=== PATIENT | female | born 1975 | race Caucasian/White ===

== ENCOUNTER 2018-04-06 05:30 | Day surgery (SDC) | payer BC ==
[2018-04-05 14:17] LABS: ANION GAP 12.3 mmol/L (8-16); CALCIUM 8.2 mg/dL (8.5-10.1); CARBON DIOXIDE 28.4 mmol/L (21.0-32.0); CREATININE - SERUM 0.9 mg/dL (0.6-1.3); POTASSIUM - SERUM 3.7 mmol/L (3.5-5.1)
[2018-04-05 14:45] LABS: HEMATOCRIT 42.4 % (36.0-48.0); HEMOGLOBIN 14.5 g/dL (12-16); LYMPHOCYTES 28.4 % (15-50); MCH 31.4 pg (26.0-34.0); MCHC 34.2 g/dL (31.0-37.0); MCV 91.8 fL (80.0-100.0); MEAN PLATELET VOLUME 9.6 fL (7.4-10.4); NEUTROPHILS 67.9 % (40-80); PLATELET COUNT 213 10x3/uL (130-400); RBC 4.62 10x6/uL (4.00-5.40); RDW 12.4 % (11.5-14.5)
[~2018-04-06] VITALS: Ht 182.9 cm; Wt 106.6 kg
[~2018-04-06 05:30] MED LIST: ATARAX 25 MG TA25 MG PO; PEPCID AC20 MG PO; ZYRTEC10 MG PO
[2018-04-06 06:20] VITALS: BP 118/75; Ht 182.9 cm; Wt 106.6 kg
[2018-04-06 06:27] LABS: HCG URINE NEGATIVE (NEGATIVE)
[2018-04-06] MEDS ORDERED: NORCO 10-325 TA1 TAB PO (08:48)
--- NOTE | 2018-04-10 11:56 | OP ---
PATIENT NAME: MOHINI HACKETT MEDICAL RECORD: [id number] :77 LOCATION:[facility] ADMISSION DATE: SURGEON: JAYESH MALDONADO MD DATE OF OPERATION: 04/06/2018 PREOPERATIVE DIAGNOSES: 1. Gallstones. 2. Tobacco dependence syndrome. POSTOPERATIVE DIAGNOSES: 1. Gallstones. 2. Tobacco dependence syndrome. PROCEDURE: Laparoscopic cholecystectomy. SURGEON: Jayesh Maldonado MD LOG CHAIN WORKER: Megan Esteban APRN REPORT OF PROCEDURE: The patient's abdomen was prepped and draped in sterile fashion. A cutdown was made on the superior aspect of the umbilicus, 0 Vicryls were placed in the fascia bilaterally and the fascia was incised with 15-blade. I then bluntly entered the peritoneal cavity and placed a 12-mm Jose port. Under direct visualization, a 5-mm trocar was placed in the epigastrium and 2 more 5-mm trocars were placed in the right subcostal region. The gallbladder was elevated. There were some adhesions present on the small bowel to the gallbladder and this was teased down carefully with sharp dissection. The gallbladder had a large stone present in the infundibulum. We then dissected out the cystic artery and cystic duct and these were clipped proximally and distally and ligated in standard fashion. The gallbladder was taken off the liver bed using electrocautery and placed into the right upper quadrant. Any bleeding from the liver bed was then treated with electrocautery. At this point, the ports and insufflation were then removed and the gallbladder was taken out through the umbilicus. The umbilical fascia was closed with interrupted 0 Vicryls times 3. The wounds were then irrigated out with normal saline and infused with 10 mL of 0.25% Marcaine with epinephrine. The skin incisions were all closed with subcutaneous 5-0 Monocryl and dressed appropriately. COMPLICATIONS: None. CONDITION: Stable. ANESTHESIA: General endotracheal and local. BLOOD LOSS: Minimal. TRANSINT:[id number] Voice Confirmation ID: [id number] DOCUMENT ID: [id number] OPERATIVE REPORT [id number] MOHINI HACKETT JAYESH MALDONADO MD at 1156 CC: LLUVIA LUTHER [id number] DICTATION DATE: 04/06/1852 [employer] INSTALLER: 04/06/18 0931 [facility] 04/06/18 [facility] [address] [place] [address]
== END 2018-04-06 12:04 | disposition home or self-care (01) ==
LOC: D.OPS 05:30 → D.PAN 08:00 → D.OPS 12:04
PROVIDERS: Surgery
DX: K80.20 Calculus of gallbladder without cholecystitis without obstruction (principal); F17.200 Nicotine dependence, unspecified, uncomplicated; Z01.812 Encounter for preprocedural laboratory examination

== ENCOUNTER → 2018-06-20 08:27 | Outpatient (CLI) | payer BC ==
[2018-04-06 06:20] VITALS: BMI 31.9
[~2018-06-20 08:27] MED LIST changes: +NORCO 10-325 TA1 TAB PO
== END | disposition home or self-care (01) ==
LOC: D.NM 08:27
PROVIDERS: ATTEND Internal Medicine Gastroenterology
DX: R11.2 Nausea with vomiting, unspecified (principal); R10.9 Unspecified abdominal pain; R68.81 Early satiety

== ENCOUNTER 2019-07-15 07:24 | Day surgery (SDC) | payer BC, OTHER ==
[2019-07-11 12:14] LABS: UDS - AMPHET NEGATIVE QUAL (NEGATIVE); UDS - BARB NEGATIVE QUAL (NEGATIVE); UDS - BENZO NEGATIVE QUAL (NEGATIVE); UDS - COCAINE NEGATIVE QUAL (NEGATIVE); UDS - OPIATE NEGATIVE QUAL (NEGATIVE); UDS - PCP NEGATIVE QUAL (NEGATIVE); UDS - THC NEGATIVE QUAL (NEGATIVE)
[2019-07-11 12:28] LABS: CALC OSMOLALITY 278 mosm/kg (275-300); CALCIUM 8.7 mg/dL (8.5-10.1); CARBON DIOXIDE 28.1 mmol/L (21.0-32.0); CHLORIDE - SERUM 105 mmol/L (98-107); CREATININE - SERUM 0.7 mg/dL (0.6-1.3); GLUCOSE 81 mg/dL (74-106); POTASSIUM - SERUM 4.1 mmol/L (3.5-5.1); SODIUM 141 mmol/L (136-145); UREA NITROGEN 10 mg/dL (7-18); eGFR NON AFRICAN AMERICAN > 90 mL/min (90-120)
[2019-07-11 12:47] LABS: BASOPHILS 0.2 % (0-2); EOSINOPHILS 3.1 % (0-7); HEMATOCRIT 44.1 % (36.0-48.0); HEMOGLOBIN 14.4 g/dL (12-16); IMMATURE GRANULOCYTES 0.2 % (0-5); LYMPHOCYTES 24.7 % (15-50); MCH 31.2 pg (26.0-34.0); MCHC 32.7 g/dL (31.0-37.0); MCV 95.7 fL (80.0-100.0); MEAN PLATELET VOLUME 10.4 fL (7.4-10.4); MONOCYTES 5.1 % (2-11); NEUTROPHILS 66.7 % (40-80); RBC 4.61 10x6/uL (4.00-5.40); RDW 12.7 % (11.5-14.5); WBC 10.7 10x3/uL (4.8-10.8)
[2019-07-11 12:56] LABS: PLATELET COUNT 260 10x3/uL (130-400)
[~2019-07-15] VITALS: Ht 182.9 cm; Wt 108.4 kg
[~2019-07-15 07:24] MED LIST changes: +ALBUTEROL SULF8.5 GM; +[UNRECOGNIZED DRUG - OTHER]
[2019-07-15 08:26] VITALS: BP 125/89; BMI 32.5
[2019-07-15 08:43] LABS: HCG URINE NEGATIVE (NEGATIVE)
[2019-07-15 14:06] VITALS: BP 143/75
--- NOTE | 2019-07-15 14:06 | NUR ---
REC'D TO ROOM 1273 VIA BED FROM PACU. REPORT REC'D. VSS. C/O ABD AND INCISIONAL DISCOMFORT 7-11/03. GRIMACE NOTED OCCASIONALLY. 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 AA&O X4. REPORTS THAT SHE FEELS DROWSY. DENIES NAUSEA AND REQUESTS ICE CHIPS. RESP REGULAR AND UNLABORED, NO S/S OF DISTRESS NOTED. BREATH SOUNDS CLEAR AND EQUAL. BOWEL SOUNDS PRESENT AND HYPOACTIVE X4 QUADS. BANDAIDS IN PLACE TO L LOWER AND R LOWER INCISIONS AND UMIBILCUS, ALL INTACT WITH NO DRAINAGE NOTED. PERICARE DONE. TOWELS PADS AND CHUX CHANGE. PERIPAD PLACED. 200 MLS YELLOW URINE EMPTIED FROM ARAIZA. PT REQUEST INTERVENTION FOR PAIN. POC DISCUSSED WITH PT, VERBALIZES UNDERSTANDING AND DENIES QUESTIONS.
--- NOTE | 2019-07-15 14:20 | NUR ---
C/O ABD SORENESS AND INCISIONAL DISCOMFORT 7-11/03. HYDROMORPHONE GIVEN PER ORDER AND PT REQUEST. REQUESTS NAUSEA MEDS WITH PAIN D/T REPORTING THAT PAIN MEDS CAUSE HER NAUSEA. ZOFRAN PROVIDED PER ORDER AND PT REQUEST. ICE CHIPS PROVIDED AND ICE PACK PLACED TO ABD. SCD'S ON BLE. DENIES NEEDS AT THIS TIME. BED IN LOW POSITION WITH SRUP X2. CALL LIGHT AND PHONE WITHIN REACH. WILL CONTINUE TO MONITOR.
[2019-07-15 14:31] VITALS: BP 112/63
--- NOTE | 2019-07-15 14:31 | NUR ---
PT SNORING. O2 SATS 88-93%. 2 L O2 PLACED. WITH DEEP BREATHING DONE O2 SAT INCREASES TO 98% ON RA. VSS. NO VAG BLEEDING NOTED, WILL CONTINUE TO MONITOR.
--- NOTE | 2019-07-15 14:57 | NUR ---
VSS. RESTING QUIETLY WITH EYES CLOSED, RESP REGULAR AND UNLABORED, NO S/S OF DISTRESS NOTED. BED IN LOW POSITION WITH SRUP X2. CALL LIGHT AND PHONE WITHIN REACH. WILL CONTINUE TO MONITOR.
--- NOTE | 2019-07-15 15:37 | NUR ---
VSS. O2 DECREASED TO 1 L/MIN, O2 SAT REMAINS 94%-97% WITH DECREASE, WILL CONTINUE TO MONITOR. AROUSES EASILY TO VOICE. DENIES NEEDS.
[2019-07-15 16:38] VITALS: BP 114/64; Ht 182.9 cm; Wt 108.4 kg
--- NOTE | 2019-07-15 16:38 | NUR ---
ROUNDS MADE. PT SITTING IN HIGH FOWLERS POSITION PREPARING TO EAT DINNER TRAY. REPORTS FEELING URGE TO VOID AND REQUEST ARAIZA BE D/C'D AND TO GET UP TO BR. C/O ABD DISCOMFORT 07/04, DENIES NEED FOR INTERVENTION. DENIES NAUSEA AND REPORTS THAT SHE HAS PASSED FLATUS. ARAIZA D/C'S WITH 750 MLS PRESENT. PIV SL. UP TO BR WITH STANDBY ASSIST. VOIDED 600 MLS IN HAT. PERICARE PER PT. PAD AND PANTIES PROVIDED, AMBULATED BACK TO BED, STEADY GAIT NOTED. REQUEST PO PAIN MEDS AT THIS TIME. WILL PROVIDE PER ORDER.
--- NOTE | 2019-07-15 17:15 | NUR ---
1 TAB PERCOCET GIVEN PER ORDER AND PT REQUEST. SCD'S PLACED BACK ON BLE. DENIES ADDITIONAL NEEDS. BED IN LOW POSITION WITH SRUP X2. CALL LIGHT AND PHONE WITHIN REACH. WILL CONTINUE TO MONITOR.
--- NOTE | 2019-07-15 18:07 | NUR ---
PAIN REASSESSMENT COMPLETED. 05/06. EATING DINNER TRAY. DENIES NEEDS AT THIS TIME. COUGH AND DEEP BREATHING DONE. SCD'S ON BLE. WILL CONTINUE TO MONITOR.
--- NOTE | 2019-07-15 19:23 | NUR ---
BEDSIDE SHIFT REPORT COMPLETED WITH JACKSON AMES
[2019-07-15 19:34] VITALS: BP 139/71
--- NOTE | 2019-07-15 20:51 | NUR ---
ROOM CHECK ON PATIENT, ICE CHIPS PROVIDED PER REQUEST. PT ALSO STATES THAT SHE IS DYING FOR A CIGARETTE AND WONDERS IF SHE CAN GET A PATCH.
--- NOTE | 2019-07-15 20:51 | NUR ---
DR COCHRAN PAGED AT THIS TIME WITH IMMEDIATE CALL BACK, INFORMED OF PT REQUEST FOR NICOTINE PATCH. NEW ORDERS NOTED FOR A 14MG NICOTINE PATCH EVERY 24 HRS.
--- NOTE | 2019-07-15 21:50 | NUR ---
NICOTINE PATCH PLACED TO PATIENTS UPPER ARM AT THIS TIME PER MD ORDERS. PT DENIES OTHER NEEDS. WILL CONTINUE TO MONITOR.
--- NOTE | 2019-07-15 23:43 | NUR ---
PATIENT WALKING AROUND THE ROOM, TALKING ON HER CELL PHONE. MEDICATION ADMINISTERED PER MD ORDERS, SEE EMAR. ICE PROVIDED PER REQUEST. NO FURTHER NEEDS IDENTIFIED. WILL CONTINUE TO MONITOR
--- NOTE | 2019-07-16 01:32 | NUR ---
PATIENT LYING IN BED WITH EYES CLOSED. EASILY AROUSED TO VERBAL. TORADOL ADMINISTERED PER MD ORDERS,SEE EMAR. NO FURTHER NEEDS IDENTIFIED. BED REMAINS LOCKED IN LOW POSITION. SIDE RAILS UPX2, CALL VILLEGAS AND TRAY TABLE IN REACH. WILL CONTINUE TO MONITOR.
--- NOTE | 2019-07-16 03:40 | NUR ---
PATIENT SLEEPING QUIETLY WITH EYES CLOSED, RESPIRATIONS EVEN AND NON LABORED. WILL CONTINUE TO MONITOR.
--- NOTE | 2019-07-16 04:41 | NUR ---
PT REQUESTING PAIN MEDICATION. PERCOCET ADMINISTERED PER REQUEST AND MD ORDERS. SEE EMAR. PT DENIES FURTHER NEEDS, ENCOURAGED TO CALL PRN. WILL CONTINUE TO MONITOR.
--- NOTE | 2019-07-16 05:30 | NUR ---
PATIENT RESTING QUIETLY WITH EYES CLOSED, DENIES NEEDS. WILL CONTINUE TO MONITOR.
--- NOTE | 2019-07-16 06:15 | NUR ---
PT RESTING QUIETLY WITH EYES CLOSED, EASILY AROUSED TO VERBAL. DENIES NEEDS, ASKING WHEN BREAKFAST WILL BE SERVED. WILL CONTINUE TO MONITOR
--- NOTE | 2019-07-16 07:10 | NUR ---
PT RESTING WITH EYES CLOSED IN LAYING ON R SIDE POSITION, RESP REGULAR AND UNLABORED, NO S/S OF DISTRESS NOTED. BED IN LOW POSITION WITH SRUP X2. CALL LIGHT AND PHONE WITHIN REACH. NOT DISTURBED TO ALLOW FOR REST. WILL CONTINUE TO MONITOR.
--- NOTE | 2019-07-16 08:30 | NUR ---
ASSESSMENT DONE. PT RATES PAIN A 6 ON SCALE OF 0-10. REQUESTING PAIN MEDICATION. VS DONE. DENIES PASSING GAS BUT STATES THAT SHE GETS DIARRHEA WITH ANESTHESIA. BOWEL SOUNDS PRESENT AND ABD SOFT. DENIES OTHER NEEDS.
[2019-07-16 08:36] VITALS: BP 140/81
--- NOTE | 2019-07-16 10:00 | NUR ---
DR CORRALES HERE TO SEE PT- DISCHARGE ORDERS RECEIVED.
[2019-07-16] MEDS ORDERED: TORADOL10 MG PO (10:19)
[2019-07-16] MEDS ORDERED: PERCOCET 7.5/321 TAB PO (10:22)
[2019-07-16] MEDS ORDERED: NEURONTIN 300300 MG PO (10:22)
--- NOTE | 2019-07-16 10:35 | NUR ---
IV SALINE LOCK REMOVED- CATH TIP INTACT- PRESSURE HELD AND BANDAIDE APPLIED. DISCHARGE INST VERBAL AND WRITTEN GIVEN.PFW POST OP LAPROSCOPY AND POST OP HYST INST GIVEN. SCRIPTS X3, WITH DRUG DATA SHEETS AND PT MED REC GIVEN. SEE ALSO SIGNED INST SHEET. PT HEALTH SUMMARY GIVEN TO PT TO READ. DENIES QUESTIONS AT THIS TIME.
--- NOTE | 2019-07-16 11:35 | NUR ---
pt states her is here to pick her up. to auto via w/c without incident. stable
--- NOTE | 2019-07-19 12:21 | OP ---
PATIENT NAME: MOHINI HACKETT MEDICAL RECORD: [id number] :77 LOCATION:[facility] ADMISSION DATE: SURGEON: MARCIN CORRALES MD DATE OF OPERATION: 07/15/2019 PREOPERATIVE DIAGNOSES: 1. Dysfunctional uterine bleeding. 2. Dysmenorrhea. POSTOPERATIVE DIAGNOSES: 1. Dysfunctional uterine bleeding. 2. Dysmenorrhea. PROCEDURE PERFORMED: 1. Diagnostic laparoscopy. 2. Total laparoscopic hysterectomy. 3. Left salpingo-oophorectomy. 4. Right salpingectomy. SURGEON: Marcin Corrales MD POCKET ASSEMBLER: Jesse Malone. ANESTHESIOLOGIST: Dr. Martinez. ANESTHETIC: General. FINDINGS: Uterus is slightly enlarged, but otherwise unremarkable. Both tubes are unremarkable as well as the ovaries. The abdominal anatomy that is visualized is unremarkable. SPECIMENS REMOVED: 1. Uterus with cervix. 2. Bilateral tubes. 3. Left ovary. SPECIMEN DISPOSITION: All specimens to pathology. ESTIMATED BLOOD LOSS: Less than or equal to 75 cc. FLUIDS: 1700 cc lactated Ringer's. URINE OUTPUT: 725 cc of clear urine. COMPLICATIONS: None. DRAINS: Grover to gravity. INDICATIONS: The patient is a 43-year-old female with a history of dysfunctional uterine bleeding and dysmenorrhea. The patient has had a negative impact on quality of life with no assistance through medical treatment. The patient desires definitive therapy. The patient is consented for TLH with LSO and right salpingectomy and any indicated procedure. DESCRIPTION OF PROCEDURE: After informed consent was assured, the patient was OPERATIVE REPORT [id number] MOHINI HACKETT taken to the operating room where anesthetic was obtained without difficulty. The patient was now prepped and draped in the usual sterile fashion. The uterine manipulator was now placed and attention directed to the abdomen. An incision was made at the umbilicus to accommodate a 5-mm trocar, which was inserted without difficulty. Pneumoperitoneum was developed and the patient was in Trendelenburg position. With an 11-mm port placed on the right side and a 10-mm port placed on the left side, the bowel was now swept free of the pelvis with a blunt probe. Using the uterine manipulator, the right adnexa was brought in a clear view and with a grasper from the left, the right tube was elevated. Using a Thunderbeat coagulation cutter, the tube was now removed from the right side and pulled out of the pelvis and passed to the attendant. Dissection continues down across the uteroovarian and round ligaments. The anterior leaf of the broad ligament was opened and the bladder flap developed. Posterior leaf was opened exposing the vascular bundle of the right side. The vessels of the right side are now compressed, coagulated, and . Attention was directed to the left side now. With the left tube and ovary elevated from the right side, coagulation cautery was now used to compress, coagulate, and separate the infundibulopelvic ligament. This dissection was carried out underneath the left ovary and tube across the round ligament and down the anterior leaf of the broad ligament. The bladder flap was now fully developed with a Thunderbeat. Posterior leaf of the broad ligament was dissected free and the vascular bundle of the left side, which was now compressed, coagulated, and . Using a laparoscopic peanut, the dissection of the bladder down from the superior aspect of the cervix was completed. Using the Thunderbeat, the vaginal cuff was entered at the 12 o'clock position from the left. Dissection was carried from the 12-6 o'clock position from the left side of the patient. I then completed from the 12-6 o'clock position from the right side. The uterus, left tube and ovary were pulled into the vaginal vault and pneumoperitoneum was maintained. From the right, a [address]-2 needle was placed into the pelvis and using laparoscopic suturing technique, the cuff was closed, starting from the patient's right, completing on the left. The stitches got close to the peritoneum and removed from the pelvis. The pelvis was now copiously irrigated and irrigant removed. Bleeding at the cuff was stopped with coagulation cutter and Tiburcio. Pneumoperitoneum was released as the accessory ports were removed. The primary port was now removed and all sites closed with a subcuticular stitch and Dermabond applied. The patient tolerated the procedure well and went to the recovery room in stable condition. TRANSINT: Voice Confirmation ID: [id number] DOCUMENT ID: [id number] MARCIN CORRALES MD at 1221 CC: [id number] DICTATION DATE: 07/17/19644 PATTERN[employer]KER WOOD: 07/17/19 0752 [facility] 07/16/19 [facility] [address] [place] [id number]
== END 2019-07-16 11:35 | disposition home or self-care (01) ==
LOC: D.OPS 07:24 → D.LD 13:28 → D.OPS 07-16 11:35
PROVIDERS: ATTEND Obstetrics & Gynecology
DX: N93.8 Other specified abnormal uterine and vaginal bleeding (principal); N94.6 Dysmenorrhea, unspecified; N94.10 Unspecified dyspareunia; R10.2 Pelvic and perineal pain; Z85.41 Personal history of malignant neoplasm of cervix uteri; Z72.0 Tobacco use